=== PATIENT | female | born 1950 | race Caucasian/White ===

== ENCOUNTER 2016-12-03 07:57 | Inpatient (IN) | payer MEDICARE, BC ==
[~2016-12-03] VITALS: Ht 175.3 cm; Wt 95.2 kg
[2016-12-03] MEDS ORDERED: CITRTAB16 (10:35)
[2016-12-03] MEDS ORDERED: POTA10CA PO (10:35)
[2016-12-03] MEDS ORDERED: GLUC500C5 PO (10:35)
[2016-12-03] MEDS ORDERED: CITR500T PO (10:35)
[2016-12-03] MEDS ORDERED: ASPI-110 PO (10:35)
[2016-12-03] MEDS ORDERED: OMEP20TA PO (10:35)
[2016-12-03] MEDS ORDERED: LEVO125T4 PO (10:35)
[2016-12-03] MEDS ORDERED: ATOR40TA16 PO (10:35)
[2016-12-03] MEDS ORDERED: MULT-65 PO (10:35)
[2016-12-03] MEDS ORDERED: LOSA50TA2 PO (10:35)
[2016-12-13] MEDS ORDERED: CHLORHEXIDINE GLUCONATE 4% SOLN 120 ML BTL TOPICAL SCH (05:45)
[2016-12-13] MEDS ORDERED: POVIDONE IODINE 5% (ANTISEPSIS KIT) 4 APPLICATIONS EACH NARE PRN (05:45)
[2016-12-13] MEDS ORDERED: METOPROLOL TARTRATE 25 MG TAB PO PRN (05:45)
[2016-12-13] MEDS ORDERED: TRANEXAMIC ACID INJ 900 MG in SODIUM CHLORIDE 0.9% INJ 100 ML IV SCH ×4 (05:45)
[2016-12-13] MEDS ORDERED: EXPAREL PERI-ARTICULAR INJECTION (TOTAL VOL. 100 ML) P-ARTICULR SCH ×2 (05:45)
[2016-12-13] MEDS ORDERED: SODIUM CHLORID 0.9% 500 ML IV PRN (05:45)
[2016-12-13] MEDS ORDERED: LACTATED RINGER'S 1000 ML IV PRN (05:45)
[2016-12-13] MEDS ORDERED: ceFAZolin 2 GM PREMIX 50 ML IV SCH (05:45)
[2016-12-13] MEDS ORDERED: CHLORHEXIDINE GLUCONATE 2 % 1 PACK (2 CLOTHS) TOPICAL PRN (05:45)
[2016-12-13] MEDS ORDERED: INSULIN HUMAN REGULAR 1,000 UNITS/10 ML VIAL SQ PRN (05:45)
[2016-12-13 05:57] VITALS: BP 161/72; PULSE 66; RESP 20; TEMP 98.1; O2SAT 96
[2016-12-13] MEDS ORDERED: GENTAMICIN SULFATE 80 MG/2 ML VIAL ONE (06:07)
[2016-12-13] MEDS ORDERED: ACETAMINOPHEN 1000 MG/100 ML VIAL IV ONE (06:36)
[2016-12-13] MEDS ORDERED: MIDAZOLAM HCL 2 MG/2 ML VIAL ONE (06:36)
[2016-12-13] MEDS ORDERED: DEXAMETHASONE SOD PHOS 4 MG/ML VIAL ONE (06:36)
[2016-12-13] MEDS ORDERED: FAMOTIDINE 20 MG/2 ML VIAL ONE (06:37)
--- NOTE | 2016-12-13 06:54 | HHI.FF ---
Face to Face Verification Diagnosis: (1) Status post total right knee replacement Physical Therapy Gait training Knee: Total knee, Protocol: Right, Gait training, Full weight bearing Right LE Weight Bearing: WB as tolerated Right LE Range of Motion: Active ROM (AROM, AAROM, PROM, PRE. ROM goal is 0 to 135 degrees.) Nursing Nursing: Dressing changes Dressing Changes: Daily dressing change, Coverderm/Primapore Additional Instructions Remove steristrips on postop day 14. I have seen patient Sabra Taylor on 12/13/16. My clinical findings support the need for the requested home health care services because: Ltd mobility - disease progression High risk of falls I certify that my clinical findings support that this patient is homebound because: Post-op weakness Unsteady gait/balance Unsafe to leave home unassisted Anjelica Doran MD (Charles) Dec 13, 2016 06:54
[2016-12-13] MEDS ORDERED: ASPI-99 PO (06:56)
[2016-12-13] MEDS ORDERED: Post-op Orders (for Pharmacy) MISC XX ONE (07:00)
[2016-12-13] MEDS ORDERED: TRANEXAMIC ACID INJ 0 MG in SODIUM CHLORIDE 0.9% INJ 100 ML IV SCH (07:00)
[2016-12-13] MEDS ORDERED: ACETAMINOPHEN/HYDROcodone 325 MG/7.5 MG TAB PO PRN (07:00)
[2016-12-13] MEDS ORDERED: MORPHINE SULFATE 4 MG/ML INJ IV PUSH PRN (07:00)
[2016-12-13] MEDS: KETOROLAC TROMETHAMINE 30 MG/ML (IVP) VIAL IVP SCH ×3 (07:00→18:14)
[2016-12-13] MEDS ORDERED: ONDANSETRON HCL 4 MG/2 ML VIAL IVP PRN (07:00)
[2016-12-13] MEDS ORDERED: SODIUM CHLORIDE 0.9% FLUSH 5 ML FLUSH IVF PRN (07:00)
[2016-12-13] MEDS ORDERED: ZOLPIDEM TARTRATE 5 MG TAB PO PRN (07:00)
[2016-12-13] MEDS: HYDROCHLOROTHIAZIDE 12.5 MG CAP PO SCH (09:00)
[2016-12-13] MEDS: LOSARTAN 50 MG TAB PO SCH (09:00)
[2016-12-13] MEDS: SODIUM CHLORIDE 0.9% FLUSH 5 ML FLUSH IVF SCH ×2 (09:00→21:00)
[2016-12-13] MEDS: MULTIVITAMIN TAB PO SCH (09:00)
[2016-12-13] MEDS ORDERED: METHYLCELLULOSE PO SCH (09:00)
[2016-12-13] MEDS: PANTOPRAZOLE SOD 20 MG DELAYED RELEASE TAB PO SCH (09:00)
[2016-12-13] MEDS: ASPIRIN EC 81 MG TABEC PO SCH ×2 (09:00→21:05)
[2016-12-13] MEDS: POTASSIUM CHLORIDE 10 MEQ CAP PO SCH (09:00)
[2016-12-13] MEDS ORDERED: NON-FORMULARY DRUG (Losartan-Hydrochlorothiazide 1 TAB) PO SCH (09:00)
[2016-12-13] MEDS ORDERED: NON-FORMULARY DRUG (Glucosamine 500 MG) PO SCH (09:00)
[2016-12-13] MEDS: LACTATED RINGER'S 1000 ML INJ 1,000 ML IV SCH ×2 (09:36→19:17)
[2016-12-13] MEDS ORDERED: DO NOT ADM ANY ANTICOAGULANT DRUGS PRN (10:00)
--- NOTE | 2016-12-13 10:31 | RADRPT ---
EXAM DATE/TIME: 12/13/2016 09:47 [place] COMPARISON: No previous studies available for comparison. INDICATIONS : Post op right knee surgery. MEDICAL HISTORY : None. SURGICAL HISTORY : None. ENCOUNTER: Initial ACUITY: 1 day PAIN SCORE: 2/10 LOCATION: Right knee FINDINGS: Two view examination of the right knee demonstrates postsurgical changes following knee replacement. Prosthetic components are well seated and satisfactorily aligned. Surgical drains noted in place. There is no evidence of acute fracture. CONCLUSION: Satisfactory appearance of the right knee following joint replacement. Star Morales MD on December 13, 2016 at 10:28 Board Certified Radiologist. This report was verified electronically.
[2016-12-13] MEDS ORDERED: *morphine SULFATE 8 MG/ML PERIprocedure ONLY ONE (10:43)
[2016-12-13] MEDS ORDERED: PROPOFOL 200 MG/20 ML AMP IV ONE (12:00)
[2016-12-13] MEDS ORDERED: ONDANSETRON HCL 4 MG/2 ML VIAL IV PUSH ONE (12:00)
[2016-12-13 13:42] VITALS: BP 140/64; PULSE 55; RESP 16; TEMP 96.8; O2SAT 96
--- NOTE | 2016-12-13 16:27 | PD.CONS ---
[facility] team, Dr. Doran Reason for Consult Assist with medical management Primary Care Physician Yefri Abdul MD Diagnoses: History of Present Illness Written by Vicki Heck, acting as scribe for Dr. Bueno on 12/13/16 at 16: 14. Patient is a 66-year-old female with primary medical history of HTN, HLD, hypothyroidism, GERD who came into the hospital for an elective surgery secondary to osteoarthritis of the right knee. Patient is status post right total knee arthroplasty by Dr. Doran. Consulted for medical management. Patient seen and examined today. Reports she is doing well. States that her pain is very well managed, better than where she is at prior to surgery. Complains of lower abdominal tenderness, patient has not voided yet. Otherwise , denies pain and discomfort. Denies SOB/ dyspnea. Denies chest pain, palpitations, headaches, dizziness. Denies fevers, chills, n/v/d. Review of Systems Except as stated in HPI: all other systems reviewed are Neg Past Family Social History Allergies: Coded Allergies: MATEUS Inhibitors (Verified Allergy, Intermediate, SOB, 12/13/16) Lortab (Verified Adverse Reaction, Unknown, Hypotension, 12/16/16) Past Medical History HTN HLD Hypothyroidism GERD Past Surgical History Hysterectomy Left knee arthroplasty Left shoulder rotator cuff repair Bone graft of the jaw Reported Medications Reported Meds & Active Scripts Active Reported Citracal Calcium+D Slow Release (Rjxvdkf-Vahwukehx-Oldriow D) 600-40-500 Mg-Mg- Unit Tab Glucosamine (Glucosamine Sulfate) 500 Mg Cap 500 Mg PO DAILY Aspirin 81 (Aspirin) 81 Mg Tabdr 81 Mg PO DAILY Multi-Vitamin Daily (Multiple Vitamin) 1 Tab Tab 1 Tab PO DAILY Citrucel (Methylcellulose) 500 Mg Tab 2 Tab PO DAILY Atorvastatin (Atorvastatin Calcium) 40 Mg Tab 40 Mg PO HS Potassium Chloride ER (Potassium Chloride) 10 Meq Cap 10 Meq PO DAILY Omeprazole 20 Mg Tab 20 Mg PO DAILY Levothyroxine (Levothyroxine Sodium) 125 Mcg Tab 125 Mcg PO DAILY Losartan-Hydrochlorothiazide 50-12.5 Mg Tab 1 Tab PO DAILY Active Ordered Medications Current Medications Medications (Trade) Dose Ordered Sig/Heidy Route Start Time Stop Time Status Last Admin Chlorhexidine Gluconate 1 applic 1 applic ONCE TOPICAL 12/13/16 05:45 12/16/16 05:44 12/13/16 05:35 Tranexamic Acid 900 mg/Sodium Chloride 109 ml @ 200 mls/hr ONCE IV 12/13/16 05:45 12/13/16 17:00 12/13/16 09:59 Lactated Ringer's 1,000 ml @ 30 mls/hr Q24H PRN IV 12/13/16 05:45 12/16/16 05:44 12/13/16 05:45 Sodium Chloride 500 ml @ 30 mls/hr [id number] PRN IV 12/13/16 05:45 12/16/16 05:44 (Lr 1000 ml Inj) 1,000 ml @ 80 mls/hr [id number] IV 12/13/16 06:47 12/13/16 09:36 (NS Flush) 2 ml UNSCH PRN IVF 12/13/16 07:00 IV Flush 2 ml 2 ml BID IVF 12/13/16 09:00 (Ancef Inj/NS Inj) 100 ml @ 200 mls/hr Q6H IV 12/13/16 13:00 12/14/16 01:29 12/13/16 13:00 (Morphine Inj) 4 mg Q3H PRN IV PUSH 12/13/16 07:00 (Remus 7.5-325 Mg) 1 tab Q4H PRN PO 12/13/16 07:00 (Remus 7.5-325 Mg) 2 tab Q4H PRN PO 12/13/16 07:00 (Toradol Inj) 15 mg Q6H IVP 12/13/16 07:00 12/15/16 01:01 12/13/16 13:00 (Zofran Inj) 4 mg Q6H PRN IVP 12/13/16 07:00 (Colace) 100 mg BID PO 12/14/16 21:00 (Ambien) 5 mg HS PRN PO 12/13/16 07:00 (Milk Of Magnesia Liq) 30 ml DAILY PRN PO 12/13/16 07:00 (Ecotrin Ec) 81 mg BID PO 12/13/16 09:00 (Lipitor) 40 mg HS PO 12/13/16 21:00 (Synthroid) 125 mcg DAILY@06 PO 12/14/16 06:00 (KCl) 10 meq DAILY PO 12/13/16 09:00 Patient Own Medication PT OWN MED: Methylcellulose (Citrucel... DAILY PO 12/13/16 09:00 Hold (Theragran) 1 tab DAILY PO 12/13/16 09:00 (Protonix) 20 mg DAILY PO 12/13/16 09:00 (Cozaar) 50 mg DAILY PO 12/13/16 09:00 (Microzide) 12.5 mg DAILY PO 12/13/16 09:00 Miscellaneous Information ALL NURSING DEPARTME... UNSCH PRN .XX 12/13/16 10:00 12/14/16 09:59 Family History Mother of a massive stroke. Dad has heart issues, circulation issues Grandfather had aortic aneurysm 2 her sisters have asthma Social History Patient is with one son Wine, one glass couple times a week Denies tobacco use Denies illicit drug use Physical Exam Vital Signs Vital Signs Date Time Temp Pulse Resp B/P Pulse Ox O2 Delivery O2 Flow Rate FiO2 12/13/16 13:42 96.8 55 16 140/64 96 12/13/16 10:30 49 12 153/67 100 Nasal Cannula 2 12/13/16 10:15 51 17 141/64 100 Nasal Cannula 2 12/13/16 10:00 50 12 115/59 99 Nasal Cannula 2 12/13/16 09:45 59 24 114/59 100 Nasal Cannula 2 12/13/16 09:31 97.5 56 16 117/56 98 Nasal Cannula 2 12/13/16 05:57 98.1 66 20 161/72 96 Physical Exam GENERAL: This is a well-nourished, well-developed patient, in no apparent distress. SKIN: Warm and dry. HEAD: Atraumatic. Normocephalic. No temporal or scalp tenderness. EYES: Pupils equal round and reactive. Extraocular motions intact. No scleral icterus. No injection or drainage. ENT: Nose without bleeding. Throat without erythema. Uvula midline. Airway patent. NECK: Trachea midline. Supple. CARDIOVASCULAR: Regular rate and rhythm without murmurs, gallops, or rubs. RESPIRATORY: Clear to auscultation. Breath sounds equal bilaterally. No wheezes , rales, or rhonchi. GASTROINTESTINAL: Abdomen soft, lower abdominal area tender to palpate, lower abdominal quadrant slightly distended. Bowel sounds hypoactive. MUSCULOSKELETAL: Extremities without clubbing, cyanosis, or edema. Right lower extremity with Mateus wrap. Hemovac drain, sanguinous small amount drainage. Able to move and wiggle toes. On CPM machine NEUROLOGICAL: Awake and alert. Cranial nerves II through XII intact. Motor and sensory grossly within normal limits. Normal speech. Laboratory Laboratory Tests Test 12/13/16 05:50 Blood Type A POSITIVE Antibody Screen NEGATIVE Blood Bank Comment Imaging Last Impressions Knee X-Ray 12/13/16 0660 Signed Impressions: Service Date/Time: Tuesday, December 13, 2016 09:47 - CONCLUSION: Satisfactory appearance of the right knee following joint replacement. Star Morales MD Assessment and Plan Problem List: (1) Status post total right knee replacement ICD Code: Z96.651 Status: Acute (2) Primary osteoarthritis of right knee ICD Code: M17.11 Status: Acute Assessment and Plan Patient is a 66-year-old female with primary medical history of HTN, HLD, hypothyroidism, GERD who came into the hospital for an elective surgery secondary to osteoarthritis of the right knee. Patient is status post right total knee arthroplasty by Dr. Doran. Consulted for medical management. Status post right TKA secondary to osteoarthritis - Managed by primary team - Pain management - Physical therapy eval and treat HTN HLD - Continue with home medication ASA, losartan 50 mg daily, hydrochlorothiazide 12.5 mg daily - Continue with atorvastatin 40 mg daily - Monitor BP trend Hypothyroidism - Continue with levothyroxine Urinary retention - Bladder scan if greater than 200, straight catheter - Bladder training GI prop pantoprazole DVT prop SCDs Code Status Full code Discussed Condition With Patient, nursing This note was transcribed by jonathan Heck. I, Dr. Ceasar Morgan personally performed the history, physical exam, and medical decision making; and confirmed the accuracy of the information in the transcribed note. Authenticated by Dr. Ceasar Morgan on 12/13/16 at 16:14. . Vicki Vega Dec 13, 2016 16:27 Ceasar Anguiano MD Dec 16, 2016 21:02
[2016-12-13 19:15] VITALS: BP 142/65; PULSE 67; RESP 18; TEMP 96.8; O2SAT 93
[2016-12-13] MEDS: ATORVASTATIN 40 MG TAB PO SCH (21:05)
[2016-12-13] MEDS: ACETAMINOPHEN/HYDROcodone 325 MG/7.5 MG TAB PO PRN (21:06)
[2016-12-13 23:46] VITALS: BP 115/55; PULSE 63; RESP 17; TEMP 96.7; O2SAT 94
[2016-12-14] VITALS (7 sets, daily range): BP systolic 113–145; BP diastolic 57–74; PULSE 52–61; RESP 17–19; TEMP 95.8–97.7; O2SAT 94–100
[2016-12-14] MEDS: KETOROLAC TROMETHAMINE 30 MG/ML (IVP) VIAL IVP SCH ×4 (00:15→22:53)
[2016-12-14] MEDS: ACETAMINOPHEN/HYDROcodone 325 MG/7.5 MG TAB PO PRN ×4 (03:50→22:05)
[2016-12-14] MEDS: LEVOTHYROXINE SODIUM 125 MCG TAB PO SCH (05:44)
--- NOTE | 2016-12-14 06:44 | PD.ORT.PN ---
Subjective Post Op Day #: 1 Subjective Remarks She is doing well. She has been OOB to the chair and the bathroom. Range of Motion -24 to 94 sitting. Distance Walked 2 steps. Objective Vitals Vital Signs Date Time Temp Pulse Resp B/P Pulse Ox O2 Delivery O2 Flow Rate FiO2 12/14/16 04:12 96.8 60 18 143/65 94 12/13/16 23:46 96.7 63 17 115/55 94 12/13/16 19:15 96.8 67 18 142/65 93 12/13/16 13:42 96.8 55 16 140/64 96 12/13/16 12:45 97.5 58 25 137/65 98 Nasal Cannula 2 12/13/16 12:43 67 28 117/56 98 12/13/16 12:30 53 19 151/67 98 12/13/16 12:00 53 20 136/63 98 Nasal Cannula 2 12/13/16 11:30 62 24 148/69 100 Nasal Cannula 2 12/13/16 11:15 54 12 135/65 99 Nasal Cannula 2 12/13/16 11:00 51 12 138/65 100 Nasal Cannula 2 12/13/16 10:45 53 15 138/71 100 Nasal Cannula 2 12/13/16 10:30 49 12 153/67 100 Nasal Cannula 2 12/13/16 10:15 51 17 141/64 100 Nasal Cannula 2 12/13/16 10:00 50 12 115/59 99 Nasal Cannula 2 12/13/16 09:45 59 24 114/59 100 Nasal Cannula 2 12/13/16 09:31 97.5 56 16 117/56 98 Nasal Cannula 2 I/O 12/13/16 12/13/16 12/13/16 12/14/16 12/14/16 12/14/16 06:59 14:59 22:59 06:59 14:59 22:59 Intake Total 1150 ml 720 ml 480 ml Output Total 410 ml 1580 ml 40 ml Balance 740 ml -860 ml 440 ml Intake Oral 50 ml 720 ml 480 ml IV Total 300 ml Other 800 ml Output Urine Total 1500 ml Drainage Total 60 ml 80 ml 40 ml Estimated Blood Loss 350 ml # Voids 2 1 1 # Bowel Movements 0 0 Imaging Last 24 hours Impressions Knee X-Ray 12/13/16 0647 Signed Impressions: Service Date/Time: Tuesday, December 13, 2016 09:47 - CONCLUSION: Satisfactory appearance of the right knee following joint replacement. Star Morales MD Objective Remarks She is resting comfortably, OOB in the chair. The neurovascular status is intact. The dressing is dry and intact. Assessment & Plan Ortho Post Op Day #: 1 Problem List: (1) Status post total right knee replacement Plan: Continue postop care and PT. Assessment and Plan Condition: Good. Orthoapedically stable. DVT prophylaxis: ASA, TEDs, sequentials. Discharge plans: Home with [facility]. Has appointment. Rx Graham 7.5/325. Anjelica Doran MD ([place]) Dec 14, 2016 06:44
[2016-12-14] MEDS ORDERED: HYDR-3580 PO (06:46)
[2016-12-14] MEDS: LACTATED RINGER'S 1000 ML INJ 1,000 ML IV SCH ×2 (07:47→20:17)
[2016-12-14] MEDS: LOSARTAN 50 MG TAB PO SCH (08:09)
[2016-12-14] MEDS: POTASSIUM CHLORIDE 10 MEQ CAP PO SCH (08:09)
[2016-12-14] MEDS: SODIUM CHLORIDE 0.9% FLUSH 5 ML FLUSH IVF SCH ×2 (08:10→22:53)
[2016-12-14] MEDS: ASPIRIN EC 81 MG TABEC PO SCH ×2 (08:10→22:04)
[2016-12-14] MEDS: HYDROCHLOROTHIAZIDE 12.5 MG CAP PO SCH (08:10)
[2016-12-14] MEDS: MULTIVITAMIN TAB PO SCH (08:10)
[2016-12-14] MEDS: PANTOPRAZOLE SOD 20 MG DELAYED RELEASE TAB PO SCH (08:10)
[2016-12-14 08:48] LABS: HEMATOCRIT 35.9 % (35.0-46.0); MEAN CELL VOLUME 96.9 FL (80.0-100.0); MEAN CORPUSCULAR HEMOGLOBIN 31.1 PG (27.0-34.0); MEAN CORPUSCULAR HGB CONC 32.1 % (32.0-36.0); PLATELET COUNT 234 TH/MM3 (150-450); REVIEW FLAG FINAL; WHITE BLOOD COUNT 14.8 TH/MM3 (4.0-11.0)
[2016-12-14 09:26] LABS: BICARBONATE 27.5 MEQ/L (21.0-32.0)
--- NOTE | 2016-12-14 15:30 | HHI.PR ---
Subjective Remarks Follow-up visit status post right total knee arthroplasty. Patient seen and examined today. States that she has episode of vomiting during therapy class including feelings of lightheadedness. She lays down in bed, she states that it went away and she is feeling okay. States that it is just passing. She started feeling lightheaded this morning when getting out of bed. Otherwise, denies pain or discomfort, SOB, dyspnea, chest pain, palpitations, headaches, fevers, chills, diarrhea Objective Vitals Vital Signs Date Time Temp Pulse Resp B/P Pulse Ox O2 Delivery O2 Flow Rate FiO2 12/14/16 12:00 95.8 58 18 121/57 100 12/14/16 10:40 16 12/14/16 08:45 95 21 12/14/16 08:00 96.3 52 19 145/74 99 12/14/16 04:12 96.8 60 18 143/65 94 12/13/16 23:46 96.7 63 17 115/55 94 12/13/16 19:15 96.8 67 18 142/65 93 I/O 12/13/16 12/13/16 12/13/16 12/14/16 12/14/16 12/14/16 06:59 14:59 22:59 06:59 14:59 22:59 Intake Total 1150 ml 720 ml 480 ml Output Total 410 ml 1580 ml 40 ml 20 ml Balance 740 ml -860 ml 440 ml -20 ml Intake Oral 50 ml 720 ml 480 ml IV Total 300 ml Other 800 ml Output Urine Total 1500 ml Drainage Total 60 ml 80 ml 40 ml 20 ml Estimated Blood Loss 350 ml # Voids 2 1 1 # Bowel Movements 0 0 Result Diagram: 12/14/16 0757 12/14/16 0757 Imaging Last Impressions Knee X-Ray 12/13/16 0630 Signed Impressions: Service Date/Time: Tuesday, December 13, 2016 09:47 - CONCLUSION: Satisfactory appearance of the right knee following joint replacement. Star Morales MD Objective Remarks GENERAL: This is a well-nourished, well-developed patient, in no apparent distress. SKIN: Warm and dry. HEAD: Atraumatic. Normocephalic. No temporal or scalp tenderness. EYES: Pupils equal round and reactive. Extraocular motions intact. No scleral icterus. No injection or drainage. ENT: Nose without bleeding. Throat without erythema. Uvula midline. Airway patent. NECK: Trachea midline. Supple. CARDIOVASCULAR: Regular rate and rhythm without murmurs, gallops, or rubs. RESPIRATORY: Clear to auscultation. Breath sounds equal bilaterally. No wheezes , rales, or rhonchi. GASTROINTESTINAL: Abdomen soft, lower abdominal area tender to palpate, lower abdominal quadrant slightly distended. Bowel sounds hypoactive. MUSCULOSKELETAL: Extremities without clubbing, cyanosis, or edema. Right lower extremity with Mateus wrap. Able to move and wiggle toes. NEUROLOGICAL: Awake and alert. Cranial nerves II through XII intact. Motor and sensory grossly within normal limits. Normal speech. Procedures Status post right knee total arthroplasty A/P Problem List: (1) Status post total right knee replacement ICD Code: Z96.651 Status: Acute (2) Primary osteoarthritis of right knee ICD Code: M17.11 Status: Acute Assessment and Plan Patient is a 66-year-old female with primary medical history of HTN, HLD, hypothyroidism, GERD who came into the hospital for an elective surgery secondary to osteoarthritis of the right knee. Patient is status post right total knee arthroplasty by Dr. Doran. Consulted for medical management. Lightheadedness - Check labs slightly elevated WBC 14.8, BUN high at 19, estimated GFR 72. - Check orthostatic BP - Assist with transfers Status post right TKA secondary to osteoarthritis - Managed by primary team - Pain management - Physical therapy eval and treat HTN HLD - Continue with home medication ASA, losartan 50 mg daily, hydrochlorothiazide 12.5 mg daily - Continue with atorvastatin 40 mg daily - Monitor BP trend Hypothyroidism - Continue with levothyroxine Urinary retention - Bladder scan if greater than 200, straight catheter - Bladder training GI prop pantoprazole DVT prop SCDs Full code Discussed Condition Wit Patient, nursing Discharge Planning Plan for discharge home when cleared by primary team Vicki Vega Dec 14, 2016 15:30
[2016-12-14] MEDS: ATORVASTATIN 40 MG TAB PO SCH (22:04)
[2016-12-14] MEDS: DOCUSATE SODIUM 100 MG CAP PO SCH (22:04)
--- NOTE | 2016-12-14 23:56 | MP ---
cc: Eriberto REINOSO. DATE OF SURGERY: 12/13/2016 PREOPERATIVE DIAGNOSIS: Primary osteoarthritis right knee POSTOPERATIVE DIAGNOSIS Primary osteoarthritis right knee OPERATION PERFORMED Right total knee arthroplasty using [employer] Triathlon prosthesis (uncemented). SURGEON Anna Reinoso MD. PSYCHOLOGIST EDUCATIONAL: MICHEAL Newell. ANESTHESIA Spinal with supplemental adductor canal block and local. INDICATIONS AND FINDINGS This 65-year-old woman has had 18 months or more of right knee pain which has progressively worsened to the point that her ambulation tolerance is about two blocks. She has pain relief when limiting weightbearing. She has difficulty standing from a seated position and difficulty ascending and descending stairs. She uses a cart when shopping. Treatment has included anti-inflammatory agents, analgesics, activity modification exercises, ambulatory aids. This has not improve her condition. Physical findings showed some varus with medial laxity and crepitation on motion. X-rays and MRI show osteoarthritis in the right knee with loss of articular cartilage in the medial compartment especially but also the patellofemoral compartment and some defects in the lateral compartment. Operative findings showed significant patellofemoral and medial compartment arthritis with minor lateral compartment arthritis. The prosthesis used was a [place] Triathlon prosthesis with the femur being a size 5, right cruciate-retaining Press-Fit, the tibia being a Tritanium baseplate size 5 with a 13 mm cruciate-retaining X3 polyethylene spacer and the patella being a Tritanium backed asymmetric patella size 35 mm. PROCEDURE The patient was brought to the clean-air operating suite and a spinal anesthetic was administered. She received prophylactic antibiotics in the form of Ancef and also tranexamic acid preoperatively according to protocols. She had an abductor canal block carried out as well. She was positioned in a supine position on the operating table with a small bolster under the right hip. A pneumatic tourniquet was applied to the right thigh. The limb was then prepped with alcohol, Hibiclens, and ChloraPrep, and draped in the usual manner with the knee draped free. An appropriate time out procedure was carried out. Local anesthesia was administered with Exparel into the incision site. The incision was then made from about three fingerbreadths above the superior medial pole of patella down to the tibial tubercle. The incision was deepened through the subcutaneous tissues to the retinacular structures which were exposed medially and laterally. A medial retinacular incision was made from the superior medial pole of the patella down to the tibial tubercle and up into the quadriceps tendon splitting it longitudinally in the medial one-third. The patella was reflected. The infrapatellar fat pad was debulked. Medial and lateral dissection was carried out. The anterior cruciate ligament was excised. Medial and lateral meniscectomies were initiated. The posterior surface of the patella was then excised using the oscillating saw taking care to prevent injury to the extensor mechanism. The patella protector was applied to the posterior aspect of the patella. The patella was slipped into the lateral gutter. A fenestration was made in the distal end of the femur and also in the proximal end of the tibia using the appropriate drill. The distal femoral cutting guide and jig were then assembled for 5 degrees 8-mm cut. The cutting block was stabilized with pins. The jig was removed. Distal femoral cut was completed with the oscillating saw. The sizing guide was positioned along Whitesides line and the epicondylar access. The size was determined to be a size 5. This was between a size 5 and a size 6. A size 6 four-in-one cutting block was positioned on the femur. The anterior cut was made. Stylus was then checked with the size 5 cutting block. This was then impacted into place and stabilized with pins. Anterior and posterior cuts were then completed followed by posterior and anterior chamfer cuts. Osteophytes were trimmed. Bone plug was placed in the fenestration in the distal end of the femur. Attention was then directed to the tibia. Medial and lateral meniscectomies were completed. With retractors in place, the intermedullary referencing guide for the tibial cutting block was positioned in place and stabilized with a pin for rotation. The depth of cut was verified on the lateral side using a 9 millimeter resection for the stylus. The cutting block was stabilized with pins. The depth of the cut was checked with the spacer block. The proximal tibial cut was then completed with the oscillating saw after checking. The spacer block was then adjusted and checked for 9 millimeters and this seemed a little bit lax. This went to 11 and seemed fairly appropriate with the possibility of 13. The tibial baseplate trial was positioned in place and appeared to be appropriate for a size 5. An 11 millimeter spacer was inserted. The femoral trial was impacted into place. The tibial spacer was positioned and adjusted for rotation and position. The is was stabilized with pins. The patellar drill holes were made for the 35 millimeter patella. The trial prosthesis was inserted. The knee was taken through a range of motion which was easily 0 degrees extension or more to 145 degrees of flexion. he knee was then repositioned. The femoral component was removed. The 13-mm spacer was replaced with the 11-mm spacer. The femoral component was re-impacted. When this was seated, the range of motion was 0 degrees extension to 145 degrees of flexion with excellent stability in flexion and extension. Femoral drill holes were made. The femoral trials removed. The tibial spacer trial was removed. The tibial punch was impacted through its guide after placement of bone plug into the fenestration. The tibial drill holes were then made. The trial prostheses were then removed. Local anesthetic was administered with Exparel around the posterior capsule and medially and laterally. The cut ends of bone were cleaned with pulse lavage. The tibial baseplate was impacted into place and seated appropriately. The spacer was inserted and locked into place. The femoral component was impacted into place and seated appropriately. The patella was seated on the posterior surface of the patella with the patella vice. The knee was then taken through a range of motion which was easily 0 degrees extension to 145 degrees of flexion with excellent stability medially and laterally. The drains were brought out the superolateral aspect of the suprapatellar pouch. The wound closure then commenced using 0 Vicryl interrupted [id number] sutures for the retinacular and capsular structures, 2-0 Vicryl interrupted simple sutures with buried knots for the subcutaneous tissues and 4-0 Monocryl continuous subcuticular closure for the skin. The wounds were dressed with Steri-Strips followed by dry dressing, sterile Sof-Rol, cooling pad, further sterile Sof-Rol and Mateus bandage from the base of the toe to midthigh. The patient was transferred to the recovery room in satisfactory condition having tolerated the procedure well. Counts were correct. Specimens none. Estimated blood loss 250 mL. MD SHARITA Mtz/ROSHNI /9:09 AM 11:30 PM
[2016-12-15] VITALS (7 sets, daily range): BP systolic 86–151; BP diastolic 46–66; PULSE 62–79; RESP 17–18; TEMP 96.5–98.4; O2SAT 95–98
[2016-12-15] MEDS: KETOROLAC TROMETHAMINE 30 MG/ML (IVP) VIAL IVP SCH (04:46)
[2016-12-15] MEDS: LEVOTHYROXINE SODIUM 125 MCG TAB PO SCH (04:46)
[2016-12-15] MEDS: LACTATED RINGER'S 1000 ML INJ 1,000 ML IV SCH (04:47)
[2016-12-15] MEDS: MAGNESIUM HYDROXIDE SUSP 30 ML CUP PO PRN (04:51)
--- NOTE | 2016-12-15 06:39 | PD.ORT.PN ---
Subjective Post Op Day #: 2 Subjective Remarks She is doing better today. She had vertigo, nausea and vomiting yesterday. Range of Motion -5 to 90 degrees. Distance Walked 50 feet. Objective Vitals Vital Signs Date Time Temp Pulse Resp B/P Pulse Ox O2 Delivery O2 Flow Rate FiO2 12/15/16 04:10 96.9 62 18 129/61 96 12/14/16 23:22 97.7 60 17 113/57 96 12/14/16 22:54 18 12/14/16 19:13 97.4 58 18 128/60 98 12/14/16 16:00 96.8 61 18 114/60 96 132/58 135/57 12/14/16 12:00 95.8 58 18 121/57 100 12/14/16 08:45 95 21 12/14/16 08:00 96.3 52 19 145/74 99 I/O 12/14/16 12/14/16 12/14/16 12/15/16 12/15/16 12/15/16 06:59 14:59 22:59 06:59 14:59 22:59 Intake Total 480 ml 1080 ml 240 ml Output Total 40 ml 20 ml Balance 440 ml -20 ml 1080 ml 240 ml Intake Oral 480 ml 1080 ml 240 ml Drainage Total 40 ml 20 ml # Voids 1 4 1 # Bowel Movements 0 0 0 Result Diagram: 12/14/16 0757 12/14/16 0757 Imaging Last 24 hours Impressions Knee X-Ray 12/13/16 0647 Signed Impressions: Service Date/Time: Tuesday, December 13, 2016 09:47 - CONCLUSION: Satisfactory appearance of the right knee following joint replacement. Star Morales MD Objective Remarks She is resting comfortably, supine in bed in the [facility]. The neurovascular status is intact. The dressing is dry and intact. There is no erythema nor induration. Assessment & Plan Ortho Post Op Day #: 2 Problem List: (1) Status post total right knee replacement Plan: Continue postop care and PT. Assessment and Plan Condition: Good. Orthoapedically stable. DVT prophylaxis: ASA, TEDs, sequentials. Discharge plans: Home with [facility]. Has appointment. Rx [place] 7.5/325. Anjelica Doran MD ([place]) Dec 15, 2016 06:39
[2016-12-15 08:15] LABS: HEMATOCRIT 30.5 % (35.0-46.0); REVIEW FLAG FINAL
[2016-12-15] MEDS: SODIUM CHLORIDE 0.9% FLUSH 5 ML FLUSH IVF SCH ×2 (09:00→22:16)
[2016-12-15] MEDS: HYDROCHLOROTHIAZIDE 12.5 MG CAP PO SCH (09:24)
[2016-12-15] MEDS: DOCUSATE SODIUM 100 MG CAP PO SCH ×2 (09:24→22:15)
[2016-12-15] MEDS: LOSARTAN 50 MG TAB PO SCH (09:24)
[2016-12-15] MEDS: PANTOPRAZOLE SOD 20 MG DELAYED RELEASE TAB PO SCH (09:24)
[2016-12-15] MEDS: MULTIVITAMIN TAB PO SCH (09:24)
[2016-12-15] MEDS: POTASSIUM CHLORIDE 10 MEQ CAP PO SCH (09:24)
[2016-12-15] MEDS: ASPIRIN EC 81 MG TABEC PO SCH ×2 (09:24→22:15)
[2016-12-15] MEDS: ACETAMINOPHEN/HYDROcodone 325 MG/7.5 MG TAB PO PRN (09:25)
[2016-12-15] MEDS ORDERED: traMADol HCL 50 MG TAB PO PRN (12:00)
[2016-12-15] MEDS ORDERED: SODIUM CHLOR 0.9% 250 ML INJ 250 ML IV PRN (12:00)
[2016-12-15] MEDS: traMADol HCL 50 MG TAB PO PRN ×2 (12:58→19:18)
[2016-12-15] MEDS: SODIUM CHLOR 0.9% 1000 ML INJ 1,000 ML IV SCH ×2 (13:01→23:30)
--- NOTE | 2016-12-15 13:48 | HHI.PR ---
Subjective Remarks Follow-up dizziness. Persistent dizziness especially when ambulating. She is orthostatic. Patient reports she has problems taking pain medications but can tolerate tramadol. Seen with . Discussed with RN Objective Vitals Vital Signs Date Time Temp Pulse Resp B/P Pulse Ox O2 Delivery O2 Flow Rate FiO2 12/15/16 11:49 86/48 86/46 95/48 12/15/16 11:30 96.5 72 18 120/58 96 12/15/16 07:44 97.2 69 18 151/66 95 12/15/16 04:10 96.9 62 18 129/61 96 12/14/16 23:22 97.7 60 17 113/57 96 12/14/16 22:54 18 12/14/16 19:13 97.4 58 18 128/60 98 12/14/16 16:00 96.8 61 18 114/60 96 132/58 135/57 I/O 12/14/16 12/14/16 12/14/16 12/15/16 12/15/16 12/15/16 07:00 15:00 23:00 07:00 15:00 23:00 Intake Total 480 ml 1080 ml 240 ml Output Total 40 ml 20 ml Balance 440 ml -20 ml 1080 ml 240 ml Intake Oral 480 ml 1080 ml 240 ml Drainage Total 40 ml 20 ml # Voids 1 4 1 # Bowel Movements 0 0 0 Result Diagram: 12/15/16 0700 12/14/16 0757 Imaging Last Impressions Knee X-Ray 12/13/16 0647 Signed Impressions: Service Date/Time: Tuesday, December 13, 2016 09:47 - CONCLUSION: Satisfactory appearance of the right knee following joint replacement. Star Morales MD Objective Remarks GENERAL: Well developed well-nourished in no distress ENT: No nasal bleeding or discharge. Mucous membranes pink and moist. CARDIOVASCULAR: Regular rate and rhythm. RESPIRATORY: No accessory muscle use. Clear to auscultation. Breath sounds equal bilaterally. GASTROINTESTINAL: Abdomen soft, non-tender, nondistended. MUSCULOSKELETAL: Extremities without clubbing, cyanosis, or edema. No obvious deformities. Right lower extremity in CPM NEUROLOGICAL: Awake and alert. No obvious cranial nerve deficits. Motor grossly within normal limits. Five out of 5 muscle strength in the arms and legs. Normal speech. Procedures Status post right knee total arthroplasty A/P Problem List: (1) Status post total right knee replacement ICD Code: Z96.651 Status: Acute (2) Primary osteoarthritis of right knee ICD Code: M17.11 Status: Acute Assessment and Plan Patient is a 66-year-old female with primary medical history of HTN, HLD, hypothyroidism, GERD who came into the hospital for an elective surgery secondary to osteoarthritis of the right knee. Patient is status post right total knee arthroplasty by Dr. Doran. Consulted for medical management. Orthostasis likely secondary to narcotic. She has mild anemia. Discontinue Lortab and start tramadol - Check BMP. Start IV hydration for 1 L. Fluid bolus as needed. - Monitor orthostatic BP - Assist with transfers. Fall precautions Status post right TKA secondary to osteoarthritis - Stable - Pain management with tramadol and IV morphine - Physical therapy HTN HLD - Continue with home medication ASA, losartan 50 mg daily, hydrochlorothiazide 12.5 mg daily with hold parameters. Hold BP meds for now - Continue with atorvastatin 40 mg daily - Monitor BP trend Hypothyroidism - Continue with levothyroxine Urinary retention -Improved Post operative anemia secondary to acute blood loss. This is mild continue to monitor repeat hemoglobin in the morning GI prop pantoprazole DVT prop SCDs and aspirin Discharge Planning Possible discharge in 1-2 days Tray Cruz MD Dec 15, 2016 13:48
[2016-12-15] MEDS ORDERED: ULTR50TA5 PO (13:50)
[2016-12-15 17:58] LABS: BICARBONATE 28.9 MEQ/L (21.0-32.0); POTASSIUM 3.7 MEQ/L (3.5-5.1)
[2016-12-15] MEDS: ATORVASTATIN 40 MG TAB PO SCH (22:15)
[2016-12-16] MEDS: traMADol HCL 50 MG TAB PO PRN ×2 (00:10→13:57)
[2016-12-16 04:20] VITALS: BP 126/68; PULSE 85; RESP 17; TEMP 98.6; O2SAT 98
[2016-12-16] MEDS: LEVOTHYROXINE SODIUM 125 MCG TAB PO SCH (06:31)
--- NOTE | 2016-12-16 07:05 | PD.ORT.PN ---
Subjective Post Op Day #: 3 Subjective Remarks She is doing better today. She had vertigo, nausea yesterday. Medication change from [place] to tramadol has helped. Range of Motion 0 to 90 degrees. Distance Walked 15 feet, 4 times. Objective Vitals Vital Signs Date Time Temp Pulse Resp B/P Pulse Ox O2 Delivery O2 Flow Rate FiO2 12/16/16 04:20 98.6 85 17 126/68 98 12/15/16 23:10 98.0 79 17 122/58 98 12/15/16 20:18 18 12/15/16 19:13 98.4 77 18 140/65 97 12/15/16 15:49 98.0 73 18 123/59 95 12/15/16 11:49 86/48 86/46 95/48 12/15/16 11:30 96.5 72 18 120/58 96 12/15/16 07:44 97.2 69 18 151/66 95 I/O 12/15/16 12/15/16 12/15/16 12/16/16 12/16/16 12/16/16 07:00 15:00 23:00 07:00 15:00 23:00 Intake Total 240 ml 850 ml 480 ml 480 ml Balance 240 ml 850 ml 480 ml 480 ml Intake Oral 240 ml 850 ml 480 ml 480 ml # Voids 1 3 2 1 # Bowel Movements 0 0 0 0 Result Diagram: 12/15/16 0700 12/15/16 1610 Imaging Last 24 hours Impressions Knee X-Ray 12/13/16 0647 Signed Impressions: Service Date/Time: Tuesday, December 13, 2016 09:47 - CONCLUSION: Satisfactory appearance of the right knee following joint replacement. Star Morales MD Objective Remarks She is resting comfortably, supine in bed in the [facility]. The neurovascular status is intact. The dressing is dry and intact. There is no erythema nor induration. Assessment & Plan Ortho Post Op Day #: 3 Problem List: (1) Status post total right knee replacement Plan: Continue postop care and PT. Assessment and Plan Condition: Good. Orthopaedically stable. DVT prophylaxis: ASA, TEDs at home. Discharge plans: Home with [facility]. Has appointment. Rx [place] 7.5/325 (instructed to try 1/2 tab if tramadol does not work). Tramadol 50 mg to be used preferentially. Anjelica Doran MD ([place]) Dec 16, 2016 07:05
[2016-12-16 07:33] VITALS: BP 142/67; PULSE 75; RESP 18; TEMP 98.3; O2SAT 94
[2016-12-16] MEDS: SODIUM CHLOR 0.9% 1000 ML INJ 1,000 ML IV SCH ×3 (08:00→21:38)
[2016-12-16 08:25] LABS: AUTOMATED NEUTROPHIL # 7.1 TH/MM3 (1.8-7.7); BASOPHIL % 0.3 % (0.0-2.0); EOSINOPHIL # 0.3 TH/MM3 (0-0.4); EOSINOPHIL % 2.9 % (0.0-4.0); HEMATOCRIT 30.2 % (35.0-46.0); HEMO FLAGS DIFF FINAL; LYMPH % 15.3 % (9.0-44.0); LYMPHOCYTE # 1.5 TH/MM3 (1.0-4.8); MEAN CORPUSCULAR HEMOGLOBIN 32.6 PG (27.0-34.0); MEAN CORPUSCULAR HGB CONC 33.9 % (32.0-36.0); MONO % 10.3 % (0.0-8.0); NEUT % 71.2 % (16.0-70.0); PLATELET COUNT 189 TH/MM3 (150-450); RED BLOOD COUNT 3.14 MIL/MM3 (4.00-5.30); RED CELL DISTRIBUTION WIDTH 13.9 % (11.6-17.2)
[2016-12-16] MEDS: SODIUM CHLORIDE 0.9% FLUSH 5 ML FLUSH IVF SCH ×2 (09:00→21:34)
[2016-12-16 09:03] LABS: BICARBONATE 26.7 MEQ/L (21.0-32.0); MAGNESIUM 2.2 MG/DL (1.5-2.5); POTASSIUM 3.5 MEQ/L (3.5-5.1)
[2016-12-16] MEDS: MULTIVITAMIN TAB PO SCH (09:27)
[2016-12-16] MEDS: POTASSIUM CHLORIDE 10 MEQ CAP PO SCH (09:27)
[2016-12-16] MEDS: ASPIRIN EC 81 MG TABEC PO SCH ×2 (09:27→21:33)
[2016-12-16] MEDS: DOCUSATE SODIUM 100 MG CAP PO SCH ×2 (09:27→21:33)
[2016-12-16] MEDS: PANTOPRAZOLE SOD 20 MG DELAYED RELEASE TAB PO SCH (09:27)
[2016-12-16 09:31] VITALS: BP_SYST 141; BP_SYST 142; BP_SYST 94; BP_DIAS 49; BP_DIAS 70; BP_DIAS 71
--- NOTE | 2016-12-16 10:46 | HHI.PR ---
Subjective Remarks Follow-up orthostatic hypotension. Improved orthostasis but still symptomatic. Discussed with RN, not clearing patient for discharge at this time will alert attending. Objective Vitals Vital Signs Date Time Temp Pulse Resp B/P Pulse Ox O2 Delivery O2 Flow Rate FiO2 12/16/16 09:31 142/71 141/70 94/49 12/16/16 07:33 98.3 75 18 142/67 94 12/16/16 04:20 98.6 85 17 126/68 98 12/15/16 23:10 98.0 79 17 122/58 98 12/15/16 20:18 18 12/15/16 19:13 98.4 77 18 140/65 97 12/15/16 15:49 98.0 73 18 123/59 95 12/15/16 11:49 86/48 86/46 95/48 12/15/16 11:30 96.5 72 18 120/58 96 I/O 12/15/16 12/15/16 12/15/16 12/16/16 12/16/16 12/16/16 07:00 15:00 23:00 07:00 15:00 23:00 Intake Total 240 ml 850 ml 480 ml 480 ml Balance 240 ml 850 ml 480 ml 480 ml Intake Oral 240 ml 850 ml 480 ml 480 ml # Voids 1 3 2 1 # Bowel Movements 0 0 0 0 Result Diagram: 12/16/1671812/16/16718 Objective Remarks GENERAL: Well developed well-nourished in no distress. ENT: No nasal bleeding or discharge. Mucous membranes pink and moist. CARDIOVASCULAR: Regular rate and rhythm. RESPIRATORY: No accessory muscle use. Clear to auscultation. Breath sounds equal bilaterally. GASTROINTESTINAL: Abdomen soft, non-tender, nondistended. MUSCULOSKELETAL: Extremities without clubbing, cyanosis, or edema. No obvious deformities. Right lower extremity in CPM. Intact pulses NEUROLOGICAL: Awake and alert. No obvious cranial nerve deficits. Motor grossly within normal limits. Five out of 5 muscle strength in the arms and legs. Normal speech. Procedures Status post right knee total arthroplasty A/P Problem List: (1) Status post total right knee replacement ICD Code: Z96.651 Status: Acute (2) Primary osteoarthritis of right knee ICD Code: M17.11 Status: Acute Assessment and Plan Patient is a 66-year-old female with primary medical history of HTN, HLD, hypothyroidism, GERD who came into the hospital for an elective surgery secondary to osteoarthritis of the right knee. Patient is status post right total knee arthroplasty by Dr. Doran. Consulted for medical management. Orthostasis likely secondary to narcotic. Improving but still symptomatic. Discontinued Lortab. If persistent will consider stopping tramadol - Labs unrevealing we'll give IV hydration for another 1 L. Fluid bolus as needed. - Monitor orthostatic BP - Assist with transfers. Fall precautions Status post right TKA secondary to osteoarthritis - Stable - Pain management with tramadol and IV morphine - Physical therapy HTN HLD - Continue with home medication ASA. Hold losartan 50 mg daily, hydrochlorothiazide 12.5 mg dailyfor now - Continue with atorvastatin 40 mg daily - Monitor BP trend Hypothyroidism - Continue with levothyroxine Urinary retention -Improved Post operative anemia secondary to acute blood loss. This is mild and stable GI prop pantoprazole DVT prop SCDs and aspirin Discharge Planning Not ready for discharge Tray Cruz MD Dec 16, 2016 10:46
[2016-12-16] MEDS ORDERED: 1/2 NS + KCL 20 MEQ INJ 1,000 ML IV SCH (11:00)
[2016-12-16 11:34] VITALS: BP 167/74; PULSE 71; RESP 18; TEMP 97.3; O2SAT 95
--- NOTE | 2016-12-16 15:43 | HHI.DCPOC ---
Discharge Care Plan Diagnosis: (1) Primary osteoarthritis of right knee (2) Low blood pressure Your Health Problems Are: Difficulty with ADL Exercise Tolerance Goals to Promote Your Health * To prevent worsening of your condition and complications * To maintain your health at the optimal level Directions to Meet Your Goals Take your medications as prescribed Follow your dietary instruction Follow activity as directed Keep your appointments as scheduled Take your immunizations and boosters as scheduled If your symptoms worsen call your PCP, if no PCP go to Urgent Care Center or Emergency Room Smoking is Dangerous to Your Health. Avoid second hand smoke Call the 24-hour hour crisis hotline for domestic abuse at Tray Cruz MD Dec 16, 2016 15:43
[2016-12-16 17:00] VITALS: BP 158/69; PULSE 76; RESP 18; TEMP 98.4; O2SAT 96
--- NOTE | 2016-12-16 18:04 | PD.CONS ---
HPI Consult Requested By Primary Care Physician Yefri Abdul MD History of Present Illness 66-year-old female admitted for elective left knee replacement consulted to cardiolgy because of post op hypotension. No hx of cardiac surgeries cardiac risk facotrs include HTN, HLD, age and obesity. She reports having hypotension episodes in the past specially when taking pain medication. She denies chest pain, palpitations, SOB, leg edema, PND, dizziness, syncope, fever or chills. Review of Systems Consitutional: DENIES: Fatigue, Fever, Chills, Weight gain, Weight loss Eyes: DENIES: Amaurosis Fugax, Change in vision HEENT: DENIES: Lightheadedness, Change in hearing Respiratory: DENIES: See HPI, Cough, Snoring, Shortness of breath, Wheezing, Sputum production Cardiovascular: DENIES: See HPI, Chest pain, Palpitations, Syncope, Tachycardia Gastrointestinal: DENIES: Nausea, Vomiting, Change in bowel habits, Reflux, Bloody stools, Melena Genitourinary: DENIES: Urinary incontinence, Difficulty voiding Integumentary: DENIES: Rash Neurologic: DENIES: Tingling or numbness, Memory problems, Poor Balance, Stroke symptoms Musculoskeletal: DENIES: Joint pain, Muscle pain, Limited range of motion, Back pain Psychiatric: DENIES: Anxiety, Depression, Sleep disturbances Hematologic: DENIES: Bruising tendencies, Bleeding tendencies Endocrine: DENIES: Weight gain, Weight loss, Thyroid disease Past Family Social History Allergies: Coded Allergies: [place]MAN Inhibitors (Verified Allergy, Intermediate, SOB, 12/13/16) Lortab (Verified Adverse Reaction, Unknown, Hypotension, 12/16/16) Past Medical History HTN HLD Hypothyroidism GERD Past Surgical History Hysterectomy Left knee arthroplasty Left shoulder rotator cuff repair Bone graft of the jaw Reported Medications Reported Meds & Active Scripts Active Ultram (Tramadol HCl) 50 Mg Tab 50 Mg PO Q6HR PRN Hydrocodone-Acetaminophen 7.5-325 mg Tab 1 Tab PO Q4H PRN Reported Citracal Calcium+D Slow Release (Qijzuai-Frmwlueuf-Bvmiyvr D) 600-40-500 Mg-Mg- Unit Tab Glucosamine (Glucosamine Sulfate) 500 Mg Cap 500 Mg PO DAILY Aspirin 81 (Aspirin) 81 Mg Tabdr 81 Mg PO DAILY Multi-Vitamin Daily (Multiple Vitamin) 1 Tab Tab 1 Tab PO DAILY Citrucel (Methylcellulose) 500 Mg Tab 2 Tab PO DAILY Atorvastatin (Atorvastatin Calcium) 40 Mg Tab 40 Mg PO HS Potassium Chloride ER (Potassium Chloride) 10 Meq Cap 10 Meq PO DAILY Omeprazole 20 Mg Tab 20 Mg PO DAILY Levothyroxine (Levothyroxine Sodium) 125 Mcg Tab 125 Mcg PO DAILY Losartan-Hydrochlorothiazide 50-12.5 Mg Tab 1 Tab PO DAILY Active Ordered Medications Current Medications Medications (Trade) Dose Ordered Sig/Heidy Route Start Time Stop Time Status Last Admin (NS Flush) 2 ml UNSCH PRN IVF 12/13/16 07:00 (NS Flush) 2 ml BID IVF 12/13/16 09:00 12/16/16 09:00 (Morphine Inj) 4 mg Q3H PRN IV PUSH 12/13/16 07:00 (Zofran Inj) 4 mg Q6H PRN IVP 12/13/16 07:00 (Colace) 100 mg BID PO 12/14/16 21:00 12/16/16 09:27 (Ambien) 5 mg HS PRN PO 12/13/16 07:00 (Milk Of Magnesia Liq) 30 ml DAILY PRN PO 12/13/16 07:00 12/15/16 04:51 (Ecotrin Ec) 81 mg BID PO 12/13/16 09:00 12/16/16 09:27 (Lipitor) 40 mg HS PO 12/13/16 21:00 12/15/16 22:15 (Synthroid) 125 mcg DAILY@06 PO 12/14/16 06:00 12/16/16 06:31 (KCl) 10 meq DAILY PO 12/13/16 09:00 12/16/16 09:27 Patient Own Medication PT OWN MED: Methylcellulose (Citrucel... DAILY PO 12/13/16 09:00 Hold (Theragran) 1 tab DAILY PO 12/13/16 09:00 12/16/16 09:27 (Protonix) 20 mg DAILY PO 12/13/16 09:00 12/16/16 09:27 (Cozaar) 50 mg DAILY PO 12/13/16 09:00 Hold 12/15/16 09:24 Hydrochlorothiazide 12.5 mg 12.5 mg DAILY PO 12/13/16 09:00 Hold 12/15/16 09:24 Sodium Chloride 1,000 ml @ 100 mls/hr Q10H IV 12/15/16 12:00 12/15/16 23:30 (NS 250 ml Inj) 250 ml @ 250 mls/hr Q4HR PRN IV 12/15/16 12:00 (Ultram) 50 mg Q4H PRN PO 12/15/16 12:00 12/16/16 13:57 Tramadol HCl 100 mg 100 mg Q4HR PRN PO 12/15/16 12:00 12/16/16 04:36 (1/2 NS + KCl 20 Meq Inj) 1,000 ml @ 84 mls/hr [id number] IV 12/16/16 11:00 12/16/16 22:54 12/16/16 11:25 Physical Exam Vital Signs Vital Signs Date Time Temp Pulse Resp B/P Pulse Ox O2 Delivery O2 Flow Rate FiO2 12/16/16 11:34 97.3 71 18 167/74 95 12/16/16 09:31 142/71 141/70 94/49 12/16/16 07:33 98.3 75 18 142/67 94 12/16/16 04:20 98.6 85 17 126/68 98 12/15/16 23:10 98.0 79 17 122/58 98 12/15/16 20:18 18 12/15/16 19:13 98.4 77 18 140/65 97 Physical Exam GENERAL: Well-nourished, well-developed patient. SKIN: Warm and dry. HEAD: Normocephalic. EYES: No scleral icterus. No injection or drainage. NECK: Supple, trachea midline. No JVD or lymphadenopathy. CARDIOVASCULAR: Regular rate and rhythm without murmurs, gallops, or rubs. RESPIRATORY: Breath sounds equal bilaterally. No accessory muscle use. GASTROINTESTINAL: Abdomen soft, non-tender, nondistended. EXTREMITIES: No cyanosis, or edema. NEUROLOGICAL: Awake, alert, and oriented x 3. Non-focal. Laboratory Laboratory Tests Test 12/16/16 07:19 White Blood Count 10.0 Red Blood Count 3.14 Hemoglobin 10.2 Hematocrit 30.2 Mean Corpuscular Volume 96.0 Mean Corpuscular Hemoglobin 32.6 Mean Corpuscular Hemoglobin 33.9 Concent Red Cell Distribution Width 13.9 Platelet Count 189 Mean Platelet Volume 8.9 Neutrophils (%) (Auto) 71.2 Lymphocytes (%) (Auto) 15.3 Monocytes (%) (Auto) 10.3 Eosinophils (%) (Auto) 2.9 Basophils (%) (Auto) 0.3 Neutrophils # (Auto) 7.1 Lymphocytes # (Auto) 1.5 Monocytes # (Auto) 1.0 Eosinophils # (Auto) 0.3 Basophils # (Auto) 0.0 CBC Comment DIFF FINAL Differential Comment Sodium Level 140 Potassium Level 3.5 Chloride Level 106 Carbon Dioxide Level 26.7 Anion Gap 7 Blood Urea Nitrogen 13 Creatinine 0.63 Estimat Glomerular Filtration 94 Rate Random Glucose 106 Calcium Level 7.8 Magnesium Level 2.2 Result Diagram: 12/16/16 0719 12/16/16 0719 Imaging Last Impressions Knee X-Ray 12/13/16 0647 Signed Impressions: Service Date/Time: Tuesday, December 13, 2016 09:47 - CONCLUSION: Satisfactory appearance of the right knee following joint replacement. Star Morales MD Assessment and Plan Problem List: (1) Low blood pressure Assessment and Plan: 66y/o F consulted for an episode orthostasis in the setting of recent left knee replacement. No cardiovascular complaints. EKG unremarkable. Negative cardiac markers. Hg&HCT stable. BMP unremarkable. Recently res-started on home BP medications. Per patient her BP has been very sensitive to pain medications in the past. Orthostasis likely secondary to narcotic. Recommendations: 1. Hold BP medication 2. IV hydration 3. Avoid opioids 4. 12 Lead EKG Thank you for the opportunity to participate in the care oft his patient Sign off (2) Primary osteoarthritis of right knee (3) Status post total right knee replacement Problem Qualifiers (1) Low blood pressure: Qualified Code: I95.2 - Hypotension due to drugs Isrrael Shea MD Dec 16, 2016 18:04 Isrrael Shea MD Dec 16, 2016 18:04
[2016-12-16 19:00] VITALS: BP 167/81; PULSE 83; RESP 16; TEMP 98.7; O2SAT 97
[2016-12-16] MEDS: ATORVASTATIN 40 MG TAB PO SCH (21:33)
[2016-12-16] MEDS: MAGNESIUM HYDROXIDE SUSP 30 ML CUP PO PRN (21:36)
[2016-12-17] VITALS: BP_SYST 143; BP_SYST 151; BP_SYST 158; BP_DIAS 61; BP_DIAS 71; BP_DIAS 77; PULSE 111; PULSE 82; PULSE 97; RESP 17; RESP 18; RESP 19; TEMP 98.6; O2SAT 91; O2SAT 93; O2SAT 94
[2016-12-17] MEDS: traMADol HCL 50 MG TAB PO PRN ×3 (00:39→12:18)
[2016-12-17 04:00] VITALS: BP 165/78; PULSE 83; RESP 17; TEMP 97.8; O2SAT 93
[2016-12-17] MEDS: LEVOTHYROXINE SODIUM 125 MCG TAB PO SCH (06:20)
[2016-12-17 07:43] VITALS: BP 168/72; PULSE 76; RESP 18; TEMP 97.6; O2SAT 94
[2016-12-17] MEDS: SODIUM CHLORIDE 0.9% FLUSH 5 ML FLUSH IVF SCH (09:00)
[2016-12-17] MEDS: POTASSIUM CHLORIDE 10 MEQ CAP PO SCH (09:21)
[2016-12-17] MEDS: MULTIVITAMIN TAB PO SCH (09:21)
[2016-12-17] MEDS: MAGNESIUM HYDROXIDE SUSP 30 ML CUP PO PRN (09:21)
[2016-12-17] MEDS: PANTOPRAZOLE SOD 20 MG DELAYED RELEASE TAB PO SCH (09:21)
[2016-12-17] MEDS: DOCUSATE SODIUM 100 MG CAP PO SCH (09:21)
[2016-12-17] MEDS: ASPIRIN EC 81 MG TABEC PO SCH (09:22)
--- NOTE | 2016-12-17 10:51 | HHI.PR ---
Subjective Remarks Follow-up orthostatic hypotension. Patient denies any complaints no dizziness. Resolved orthostatic vital signs. Tolerating tramadol 50 mg. Discussed with patient and , may restart half of the usual dose of losartan/Hydrocort thiazide if systolic blood pressure over 140 states he can check BP. Home healthcare nurse also to check for orthostatic vital signs Objective Vitals Vital Signs Date Time Temp Pulse Resp B/P Pulse Ox O2 Delivery O2 Flow Rate FiO2 12/17/16 07:43 97.6 76 18 168/72 94 12/17/16 04:00 97.8 83 17 165/78 93 12/17/16 00:00 111 19 143/ 91 12/17/16 00:00 111 19 143/61 91 12/17/16 00:00 98.6 82 17 158/77 94 12/17/16 00:00 97 18 151/71 93 12/16/16 19:00 98.7 83 16 167/81 97 12/16/16 17:00 98.4 76 18 158/69 96 12/16/16 11:34 97.3 71 18 167/74 95 I/O 12/16/16 12/16/16 12/16/16 12/17/16 12/17/16 12/17/16 07:00 15:00 23:00 07:00 15:00 23:00 Intake Total 480 ml 1924 ml 480 ml 480 ml Balance 480 ml 1924 ml 480 ml 480 ml Intake Oral 480 ml 480 ml 480 ml IV Total 1924 ml # Voids 1 2 3 # Bowel Movements 0 0 0 Result Diagram: 12/16/16 0719 12/16/16 0719 Imaging Last Impressions Knee X-Ray 12/13/16 0647 Signed Impressions: Service Date/Time: Tuesday, December 13, 2016 09:47 - CONCLUSION: Satisfactory appearance of the right knee following joint replacement. Star Morales MD Objective Remarks GENERAL: Well developed well-nourished in no distress. ENT: No nasal bleeding or discharge. Mucous membranes pink and moist. CARDIOVASCULAR: Regular rate and rhythm. RESPIRATORY: No accessory muscle use. Clear to auscultation. Breath sounds equal bilaterally. GASTROINTESTINAL: Abdomen soft, non-tender, nondistended. MUSCULOSKELETAL: Extremities without clubbing, cyanosis, or edema. No obvious deformities. NEUROLOGICAL: Awake and alert. No obvious cranial nerve deficits. Motor grossly within normal limits. Five out of 5 muscle strength in the arms and legs. Normal speech. Procedures Status post right knee total arthroplasty A/P Problem List: (1) Status post total right knee replacement ICD Code: Z96.651 Status: Acute (2) Primary osteoarthritis of right knee ICD Code: M17.11 Status: Acute Assessment and Plan Patient is a 66-year-old female with primary medical history of HTN, HLD, hypothyroidism, GERD who came into the hospital for an elective surgery secondary to osteoarthritis of the right knee. Patient is status post right total knee arthroplasty by Dr. Doran. Consulted for medical management. Orthostasis likely secondary to narcotic. Resolving. Discontinued Lortab. - Status post IV hydration. Fluid bolus as needed. - Monitor orthostatic BP. Check EKG and follow-up echocardiogram - Assist with transfers. Fall precautions Status post right TKA secondary to osteoarthritis - Stable - Pain management with tramadol and IV morphine - Physical therapy HTN HLD - Continue with home medication ASA. Hold losartan 50 mg daily, hydrochlorothiazide 12.5 mg daily for now. At home, May restart half of the usual dose of losartan/Hydrocort thiazide if systolic blood pressure over 140 states he can check BP. Home healthcare nurse also to check for orthostatic vital signs - Continue with atorvastatin 40 mg daily - Monitor BP trend Hypothyroidism - Continue with levothyroxine Urinary retention -Improved Post operative anemia secondary to acute blood loss. This is mild and stable GI prop pantoprazole DVT prop SCDs and aspirin Discharge Planning Stable for discharge pending EKG and echocardiogram Tray Cruz MD Dec 17, 2016 10:51
--- NOTE | 2016-12-17 10:55 | HHI.DS ---
Discharge Summary Admission Date Dec 13, 2016 at 05:15 Discharge Date: Dec 17, 2016 Admitting Diagnosis (1) Status post total right knee replacement ICD Code: Z96.651 Diagnosis: Principal (2) Primary osteoarthritis of right knee ICD Code: M17.11 Diagnosis: Principal Procedures Status post right knee total arthroplasty Brief History - From Admission Written by Vicki Heck, acting as scribe for Dr. Bueno on 12/13/16 at 16: 14. Patient is a 66-year-old female with primary medical history of HTN, HLD, hypothyroidism, GERD who came into the hospital for an elective surgery secondary to osteoarthritis of the right knee. Patient is status post right total knee arthroplasty by Dr. Doran. Consulted for medical management. Patient seen and examined today. Reports she is doing well. States that her pain is very well managed, better than where she is at prior to surgery. Complains of lower abdominal tenderness, patient has not voided yet. Otherwise , denies pain and discomfort. Denies SOB/ dyspnea. Denies chest pain, palpitations, headaches, dizziness. Denies fevers, chills, n/v/d. CBC/BMP: 12/16/16 0719 12/16/16 0719 Significant Findings Laboratory Tests Test 12/15/16 12/15/16 12/16/16 07:00 16:10 07:19 Hemoglobin 10.6 GM/DL 10.2 GM/DL (11.6-15.3) (11.6-15.3) Hematocrit 30.5 % 30.2 % (35.0-46.0) (35.0-46.0) Blood Urea Nitrogen 19 MG/DL (7-18) Estimat Glomerular Filtration 70 ML/MIN (>89) Rate Calcium Level 8.0 MG/DL 7.8 MG/DL (8.5-10.1) (8.5-10.1) Red Blood Count 3.14 MIL/MM3 (4.00-5.30) Neutrophils (%) (Auto) 71.2 % (16.0-70.0) Monocytes (%) (Auto) 10.3 % (0.0-8.0) Monocytes # (Auto) 1.0 TH/MM3 (0-0.9) Imaging Last Impressions Knee X-Ray 12/13/16 0647 Signed Impressions: Service Date/Time: Tuesday, December 13, 2016 09:47 - CONCLUSION: Satisfactory appearance of the right knee following joint replacement. Star Morales MD PE at Discharge GENERAL: Well developed well-nourished in no distress. ENT: No nasal bleeding or discharge. Mucous membranes pink and moist. CARDIOVASCULAR: Regular rate and rhythm. RESPIRATORY: No accessory muscle use. Clear to auscultation. Breath sounds equal bilaterally. GASTROINTESTINAL: Abdomen soft, non-tender, nondistended. MUSCULOSKELETAL: Extremities without clubbing, cyanosis, or edema. No obvious deformities. NEUROLOGICAL: Awake and alert. No obvious cranial nerve deficits. Motor grossly within normal limits. Five out of 5 muscle strength in the arms and legs. Normal speech. Hospital Course Patient is a 66-year-old female with primary medical history of HTN, HLD, hypothyroidism, GERD who came into the hospital for an elective surgery secondary to osteoarthritis of the right knee. Patient is status post right total knee arthroplasty by Dr. Doran. Consulted for medical management. Orthostasis likely secondary to narcotic. Resolving. Discontinued Lortab. - Status post IV hydration. Fluid bolus as needed. - Monitor orthostatic BP. Check EKG and follow-up echocardiogram - Assist with transfers. Fall precautions Status post right TKA secondary to osteoarthritis - Stable - Pain management with tramadol and IV morphine - Physical therapy HTN HLD - Continue with home medication ASA. Hold losartan 50 mg daily, hydrochlorothiazide 12.5 mg daily for now. At home, May restart half of the usual dose of losartan/Hydrocort thiazide if systolic blood pressure over 140 states he can check BP. Home healthcare nurse also to check for orthostatic vital signs - Continue with atorvastatin 40 mg daily - Monitor BP trend Hypothyroidism - Continue with levothyroxine Urinary retention -Improved Post operative anemia secondary to acute blood loss. This is mild and stable GI prop pantoprazole DVT prop SCDs and aspirin Pt Condition on Discharge: Stable Discharge Disposition: Disch w/ Home Health Serv Discharge Time: > 30 minutes Discharge Instructions DIET: Follow Instructions for: As Tolerated, No Restrictions, Heart Healthy Diet Activities you can perform: Full Weight Bearing, Shower Only-No Bath Activities to Avoid: Strenuous Activity, Bathing, Driving Follow up Referrals: Orthopedics with Anjelica Doran MD ([facility]) PCP Follow-up - 1 Week New Orders: BASIC METABOLIC PROF - 12/20/[address]: Asp[address] (Adult Aspirin EC Low Strength) 81 Mg Tabec 81 MG PO BID Prevent Blood Clot #20 Ref 0 TAB Tramadol (Ultram) 50 Mg Tab 50 MG PO Q6HR PRN pain #50 TAB Continued Medications: Atorvastatin (Atorvastatin) 40 Mg Tab 40 MG PO HS Cholesterol Management #30 Ref 0 TAB Zuztbrf-Gjwcwnkor-Bvqnhor D (Citracal Calcium+D Slow Release) 600-40-500 Mg-Mg- Unit Tab Glucosamine (Glucosamine) 500 Mg Cap 500 MG PO DAILY Herbal Supplements Ref 0 CAP Levothyroxine (Levothyroxine) 125 Mcg Tab 125 MCG PO DAILY Thyroid #30 Ref 0 TAB Losartan-Hydrochlorothiazide (Losartan-Hydrochlorothiazide) 50-12.5 Mg Tab 0.5 TAB PO DAILY If systolic blood pressure over 140 and not orthostatic Blood Pressure Management #30 Ref 0 TAB Methylcellulose (Citrucel) 500 Mg Tab 2 TAB PO DAILY Prevent Constipation Ref 0 TAB Multiple Vitamin (Multi-Vitamin Daily) 1 Tab Tab 1 TAB PO DAILY Nutritional Supplement Ref 0 TAB Omeprazole (Omeprazole) 20 Mg Tab 20 MG PO DAILY #30 Ref 0 TAB Potassium Chloride ER (Potassium Chloride ER) 10 Meq Cap 10 MEQ PO DAILY Restart if taking losartan/hydrochlorothiazide Electrolyte Replacement #30 Ref 0 CAP Discontinued Medications: Aspirin DR (Aspirin 81) 81 Mg Tabdr 81 MG PO DAILY Ref 0 TAB Additional Information I spent 35 minutes bcut-ba-kder with the patient or on the [facility] discussing the patient's disposition, prognosis, and plan of care with patient's caregivers. Over half the time spent was devoted to counseling the patient regarding placement in coordinating care with caregivers Tray Cruz MD Dec 17, 2016 10:55
[2016-12-17 11:36] VITALS: BP 119/74; PULSE 84; RESP 18; TEMP 96.6; O2SAT 100
--- NOTE | 2016-12-17 12:24 | ECHRPT ---
Indication: Other cardiomyopathies CONCLUSIONS Normal left ventricular size. Wall thickness is normal. The left ventricular systolic function is normal with an estimated ejection fraction in the range of 55-60%. There was limited left ventricular wall motion assessment due to poor endocardial visualization. The estimated pulmonary arterial pressure is 36 mmHg. BP: / HR: Rhythm: Sinus MEASUREMENTS (Male / Female) Normal Values Technical Quality:Fair 2D ECHO LV Diastolic Diameter PLAX 4.5 cm 4.2 - 5.9 / 3.9 - 5.3 cm LV Systolic Diameter PLAX 3.5 cm IVS Diastolic Thickness 1.1 cm 0.6 - 1.0 / 0.6 - 0.9 cm LVPW Diastolic Thickness 0.9 cm 0.6 - 1.0 / 0.6 - 0.9 cm LV Relative Wall Thickness 0.4 RV Internal Dim ED PLAX 2.0 cm DOPPLER AV Peak Velocity 198.0 cm/s AV Peak Gradient 15.7 mmHg AV Mean Gradient 8.0 mmHg AV Velocity Time Integral 40.2 cm Mitral E Point Velocity 75.0 cm/s Mitral A Point Velocity 86.4 cm/s Mitral E to A Ratio 0.9 TR Peak Velocity 279.0 cm/s TR Peak Gradient 31.1 mmHg FINDINGS LEFT VENTRICLE Normal left ventricular size. Wall thickness is normal. The left ventricular systolic function is normal with an estimated ejection fraction in the range of 55-60%. There was limited left ventricular wall motion assessment due to poor endocardial visualization. RIGHT VENTRICLE Normal right ventricular size and systolic function. LEFT ATRIUM The left atrial size is normal. RIGHT ATRIUM The right atrial size is normal. ATRIAL SEPTUM Normal atrial septal thickness without atrial level shunting by limited color doppler interrogation. AORTA The aortic root and proximal ascending aorta are normal in size on limited imaging. MITRAL VALVE Structurally normal mitral valve. No mitral valve stenosis or regurgitation. AORTIC VALVE Trileaflet aortic valve. No aortic valve stenosis or regurgitation. TRICUSPID VALVE The estimated pulmonary arterial pressure is 36 mmHg. PULMONARY VALVE The pulmonary valve is not well visualized. VESSELS The inferior vena cava is normal in size. PERICARDIUM No pericardial effusion. Yuly Hoffman MD, FACC (Electronically Signed) Final Date:17 December 2016 12:23
--- NOTE | 2016-12-18 17:14 | EKG ---
Date Performed: 12/17/2016 Time Performed: 12:23:12 PTAGE: 66 years EKG: Sinus rhythm NONSPECIFIC T-WAVE ABNORMALITY BORDERLINE ECG Compared to prior tracing no significant change PREVIOUS TRACING : 12/03/2016 08.07 DOCTOR: Rainer Harrison Interpretating Date/Time 12/18/2016 17:12:28
== END 2016-12-17 16:16 | disposition home health service (06) | DRG 470 ==
LOC: HSDI 12-13 05:15 → N06B 12-13 13:11
PROVIDERS: ADMIT Internal Medicine; ATTEND Internal Medicine
PROC: 3E0T3CZ (ICD-10-PCS; 2016-12-13)
PROC: 0SRC0JA Replacement of Right Knee Joint with Synthetic Substitute, Uncemented, Open Approach (ICD-10-PCS; principal; 2016-12-13 06:42)
DX: M17.11 Unilateral primary osteoarthritis, right knee (principal); D62 Acute posthemorrhagic anemia; I10 Essential (primary) hypertension; Z96.652 Presence of left artificial knee joint; E78.5 Hyperlipidemia, unspecified; E03.9 Hypothyroidism, unspecified; K21.9 Gastro-esophageal reflux disease without esophagitis; R33.9 Retention of urine, unspecified; I95.1 Orthostatic hypotension
CPT/HCPCS: 73560; 80048; 83735; 85014; 85018; 85025; 85027; 86850; 86900; 86901; 93005; 93306; 94150; C1776; C9290; J0131; J0690; J1100; J1580; J1885; J2250; J2270; J2405; J7030; J7120

== ENCOUNTER → 2016-12-03 | Outpatient (CLI) | payer MEDICARE, BC ==
[~2016-12-03] MED LIST: ASPI-110 PO; ASPI81TA82 PO; ATOR40TA PO; ATOR40TA16 PO; CITR500T PO; CITRTAB16; GLUC500C3 PO; GLUC500C5 PO; HYDR-3580 PO; LEVO125T4 PO; LOSA50TA PO; LOSA50TA2 PO; MULT-65 PO; OMEP20TA PO; POTA10CA PO; SYNT125T PO; TAB-TAB PO; ULTR50TA5 PO
[2016-12-03 09:01] LABS: HEMATOCRIT 42.2 % (35.0-46.0); MEAN CELL VOLUME 96.5 FL (80.0-100.0); MEAN CORPUSCULAR HEMOGLOBIN 32.7 PG (27.0-34.0); MEAN CORPUSCULAR HGB CONC 33.9 % (32.0-36.0); PLATELET COUNT 232 TH/MM3 (150-450); RED BLOOD COUNT 4.37 MIL/MM3 (4.00-5.30); REVIEW FLAG FINAL; WHITE BLOOD COUNT 6.6 TH/MM3 (4.0-11.0)
[2016-12-03 09:04] LABS: INTERNATIONAL NORMALIZED RATIO 0.9 RATIO; PROTHROMBIN TIME - PATIENT 10.4 SEC (9.8-11.6)
[2016-12-03 09:24] LABS: BICARBONATE 28.2 MEQ/L (21.0-32.0); POTASSIUM 3.7 MEQ/L (3.5-5.1)
[2016-12-03 11:19] LABS: BLOOD, URINE NEG (NEG); GLUCOSE,URINE NEG (NEG); KETONE, URINE NEG (NEG); NITRITE,URINE NEG (NEG); PH, URINE 5.5 (5.0-8.5); URINE COLOR YELLOW (YELLW/STRAW)
[2016-12-03 11:21] LABS: COMMENT (UR) CATH-CULT NOT IND; CULTURE IF INDICATED CATH CULTURE NOT IND
--- NOTE | 2016-12-03 13:22 | EKG ---
Date Performed: 12/03/2016 Time Performed: 08:07:28 PTAGE: 66 years EKG: SINUS BRADYCARDIA LOW QRS VOLTAGE IN PRECORDIAL LEADS BORDERLINE ECG No significant change from prior electrocardiogram. PREVIOUS TRACING : 02/26/2016 14.30 DOCTOR: Milad Alonso Interpretating Date/Time 12/03/2016 13:20:33
== END ==
LOC: CPRE 07:53
PROVIDERS: ATTEND Orthopaedic Surgery
DX: Z01.812 Encounter for preprocedural laboratory examination (principal); Z01.810 Encounter for preprocedural cardiovascular examination; M17.11 Unilateral primary osteoarthritis, right knee; M79.609 Pain in unspecified limb; I10 Essential (primary) hypertension; R94.31 Abnormal electrocardiogram [ECG] [EKG]
CPT/HCPCS: 36415; 80048; 81001; 85027; 85610; 85730; 93005